=== PATIENT | male | born 1990 | race Caucasian/White ===

== ENCOUNTER 2017-05-10 03:50 | Observation (INO) | payer SELFPAY ==
[~2017-05-10 03:50] MED LIST: Naloxone 0.4 mg/ml Inj (Adult) IVP ONE
[2017-05-10] MEDS ORDERED: Sodium Chloride 0.9% 1,000 ML ONE (03:53)
[2017-05-10 03:54] VITALS: BMI 20.3
--- NOTE | 2017-05-10 04:01 | C.PDOC ---
History Of Present Illness 26 y/o male brought in by BLS found unresponsive from a alliance party. Possibility of alcohol intoxication. Patient is able to breath without assistance. Time Seen by Provider: 05/10/17 04:05 Chief Complaint (Nursing): Altered Mental Status History Per: Patient History/Exam Limitations: Clinical Condition Onset/Duration Of Symptoms: Hrs Current Symptoms Are (Timing): Still Present Usual Baseline: Alert Oriented Severity: Moderate Past Medical History Reviewed: Historical Data, Nursing Documentation, Vital Signs Vital Signs: Last Vital Signs Temp 97.5 F L 05/10/17 04:00 Pulse 92 H 05/10/17 04:00 Resp 16 05/10/17 04:00 BP 107/42 L 05/10/17 04:00 Pulse Ox 99 05/10/17 04:00 Family History: States: Unknown Family Hx - Social History Hx Alcohol Use: Yes Hx Substance Use: Yes Review Of Systems Review Of Systems: ROS cannot be obtained secondary to pt's inabilty to answer questions. Physical Exam - Physical Exam Appears: Other (No signs of trauma, Alcohol intoxication.) Skin: Warm, Dry Head: Atraumatic, Normacephalic Eye(s): bilateral: Abnormal Pupil (Small not pinpoint, but reactive) Cardiovascular: Rhythm Regular Respiratory: Normal Breath Sounds, No Rales, No Rhonchi, No Wheezing Pain Response: Other (Response to painful stimuli) ED Course And Treatment - Laboratory Results Result Diagrams: 05/10/17 04:08 05/10/17 04:08 Interpretation Of Abnormal: blood alc -220@0408H ECG: Interpreted By Me, Viewed By Me ECG Rhythm: Sinus Rhythm ECG Interpretation: No Acute Changes Interpretation Of ECG: NSR, Right axis, no acute change, borderline tracings. Rate From EC Pulse Ox Interpretation: Normal Medical Decision Making Medical Decision Making: Impression: 26 y/o male brought in by BLS found unresponsive from a alliance party. Possibility of alcohol intoxication. Plans: Narcan 0.4 mg was given to patient and patient woke up after narcan administration. Disposition - Disposition Disposition: HOME/ ROUTINE Disposition Time: 07:00 Condition: STABLE Forms: [facility] (Irish) - Clinical Impression Clinical Impression: Alcohol intoxication - Scribe Statement The provider has reviewed the documentation as recorded by the Scribe Bere browning All medical record entries made by the Scribe were at my direction and personally dictated by me. I have reviewed the chart and agree that the record accurately reflects my personal performance of the history, physical exam, medical decision making, and the department course for this patient. I have also personally directed, reviewed, and agree with the discharge instructions and disposition. Physician Patient Turnover Patient Signed Over To: Jana Torres Handoff Comments: alcohol intoxication- pending sobriety
[2017-05-10] MEDS ORDERED: Sodium Chloride 0.9% 1,000 ML IV ONE ×4 (04:02→04:13)
[2017-05-10 04:13] LABS: MEAN CORPUSCULAR HGB CONC 34.5 g/dL (33.0-37.0); RBC URINE < 1 /hpf (0-3); RED CELL DISTRIBUTION WIDTH 13.2 % (11.5-14.5); URINE BILIRUBIN NEGATIVE (NEGATIVE); URINE BLOOD NEGATIVE (NEGATIVE); URINE COLOR Straw (YELLOW); URINE GLUCOSE (UA) NORMAL (Normal); URINE KETONE TRACE mg/dL (NEGATIVE); URINE LEUKOCYTE ESTERASE NEG Leu/uL (Negative); URINE PROTEIN NEGATIVE (NEGATIVE); URINE UROBILINOGEN NORMAL mg/dL (0.2-1.0); WBC URINE < 1 /hpf (0-5)
[2017-05-10 04:14] LABS: CHLORIDE 98 mmol/L (98-107)
[2017-05-10 04:15] LABS: POTASSIUM 3.1 mmol/L (3.6-5.2); SODIUM 142 mmol/L (132-148)
[2017-05-10 04:17] LABS: BILIRUBIN,TOTAL 0.8 mg/dL (0.2-1.3); CARBON DIOXIDE 25 mmol/L (22-30); GFR AFRICAN-AMERICAN > 60
[2017-05-10 04:18] LABS: ALB/GLOB RATIO 1.5 (1.0-2.1); ALKALINE PHOSPHATASE 56 U/L (38-126); ALT/SGPT 34 U/L (21-72); AST/SGOT 23 U/L (17-59); BLOOD UREA NITROGEN 13 mg/dL (9-20); GLUCOSE,RANDOM 93 mg/dL (75-110); TOTAL PROTEIN 7.1 g/dL (6.3-8.3)
[2017-05-10] MEDS ORDERED: Sodium Chloride 0.9% 2,000 ML ONE (04:18)
[2017-05-10 04:19] LABS: ALCOHOL SERUM 220 mg/dl (0-10)
[2017-05-10 04:28] LABS: BASO % 0.2 % (0.0-2.0); EOS % 0.2 % (0.0-4.0); HEMATOCRIT 47.7 % (35.0-51.0); LYMPH # 1.9 K/uL (1.0-4.3); LYMPH % 14.7 % (20.0-40.0); MEAN CELL VOLUME 86.3 fL (80.0-94.0); MEAN CORPUSCULAR HEMOGLOBIN 29.8 pg (27.0-31.0); MONO # 0.8 K/uL (0.0-0.8); MONO % 6.4 % (0.0-10.0)
[2017-05-10 09:42] VITALS: BP 98/52; PULSE 78; RESP 84; TEMP 97.8; O2SAT 98
--- NOTE | 2017-05-12 08:05 | CARD ---
APPROVED REPORT EKG Measurement Heart [id number] <Conclusion> Normal sinus rhythm Rightward axis Borderline ECG
== END 2017-05-10 10:21 | disposition home or self-care (01) ==
LOC: C.ER 03:50 → C.9OBSV 05:34
PROVIDERS: ADMIT Emergency Medicine; ATTEND Emergency Medicine
DX: F10.129 Alcohol abuse with intoxication, unspecified (principal); Y90.7 Blood alcohol level of 200-239 mg/100 ml
CPT/HCPCS: 80053; 81001; 85025; 96365; 96366; 96374; G0480; J2310; J3480; J7040